=== PATIENT | female | born 1965 | race Caucasian/White ===

== ENCOUNTER 2019-07-26 19:18 | Emergency (ER) | payer OTHER ==
[~2019-07-26] VITALS: Ht 172.7 cm; Wt 115.2 kg
[~2019-07-26 19:18] MED LIST: EFFEXOR XR150 MG PO; EFFEXOR-XR150 MG PO; LORAZEPAM2 MG PO; NOR10T PO; TRAZODONE HYDR150 MG PO
[2019-07-26 21:30] LABS: BASOPHIL % 0.4 % (0-2); PLATELET COUNT 325 x10^3mcL (130-400); RED CELL DISTRIBUTION WIDTH 14.5 % (11.5-14.5)
[2019-07-26 21:42] LABS: CALCIUM 8.7 mg/dL (8.5-10.1); CARBON DIOXIDE 30.2 mmol/L (21-32); CREATININE SERUM 1.2 mg/dL (0.6-1.0)
[2019-07-26 21:47] LABS: ALBUMIN 3.8 g/dL (3.4-5.0); BILIRUBIN TOTAL 0.7 mg/dL (0.20-1.00); TOTAL PROTEIN, SERUM 7.4 g/dL (6.4-8.2)
[2019-07-26 23:55] VITALS: BP 99/62
== END 2019-07-26 23:30 | disposition home or self-care (01) ==
LOC: ED 19:18
PROVIDERS: Emergency Medicine
DX: N95.0 Postmenopausal bleeding (principal); I10 Essential (primary) hypertension; F32.9 Major depressive disorder, single episode, unspecified; Z87.442 Personal history of urinary calculi
CPT/HCPCS: 36415